=== PATIENT | male | born 1960 | race Caucasian/White ===

== ENCOUNTER 2018-06-03 12:09 | Inpatient (IN) ==
--- NOTE | 2018-06-03 13:10 | ED ---
HPI General Chief Complaint: Psychiatric Symptoms Stated Complaint: Psych Eval Time Seen by Provider: 06/03/18 12:57 Source: patient Mode of arrival: ambulatory Limitations: no limitations History of Present Illness HPI Narrative: 57-year-old male with a history of CVA with residual left sided weakness, depression, and suicidal ideations presents to emergency department as a Rausch act for evaluation. [facility] and a sent GILMER to pick him up and bring him to the emergency department today. Patient states he is compliant with his medications and has an outpatient psychiatrist, Tammy Mitchell. States he smokes 1 pack/day of cigarettes. Denies illicit drug use. He brings to my attention on his left third digit a growth of his nail that he says is been present for days to weeks. This appears to be months to years old. He has no other complaints today. MD complaint: Reports suicidal ideation Duration: constant History of same: Yes Relieving factors: none Exacerbating factors: none Associated psychiatric symptoms: Reports depression and suicidal ideation Associated symptoms: Reports denies other symptoms Treatments prior to arrival: Reports none If self harm: admits thoughts of self harm Related Data Home Medications Medication Instructions Recorded Confirmed aspirin 325 mg PO DAILY 06/03/18 06/03/18 atorvastatin 40 mg PO DAILY 06/03/18 06/03/18 cholecalciferol (vitamin D3) 1,000 unit PO DAILY 06/03/18 06/03/18 fluoxetine 20 mg PO DAILY 06/03/18 06/03/18 lisinopril 5 mg PO DAILY 06/03/18 06/03/18 metoprolol tartrate 12.5 mg PO BID 06/03/18 06/03/18 mirtazapine 7.5 mg PO HS 06/03/18 06/03/18 olanzapine 20 mg PO HS 06/03/18 06/03/18 tamsulosin 0.4 mg PO HS 06/03/18 06/03/18 Allergies Allergy/AdvReac Type Severity Reaction Status Date / Time No Known Allergies Allergy UNKNOWN Uncoded 06/03/18 16:51 Review of Systems ROS: all other systems reviewed are negative PMFSH History History Provided By: Patient Medical History Medical History Hypertension (Acute) Stroke (Acute) Social History Social History Substance History: No History of Abuse Second Hand Smoke Exposure: Yes Smoking Status: Current every day smoker Tobacco Type: Cigarettes How Often Do You Have a Drink Containing Alcohol: Never Recent Travel in [facility] within the Last 8 Weeks: No Recent Out of Country Travel within the Last 8 Weeks: No Exam Narrative Exam Narrative: GENERAL: Well-developed, well-nourished in no acute distress SKIN: Focused skin assessment warm/dry. HEAD: Atraumatic. Normocephalic. EYES: Pupils equal and round. No scleral icterus. No injection or drainage. ENT: No nasal bleeding or discharge. Mucous membranes pink and moist. NECK: Trachea midline. No JVD. CARDIOVASCULAR: Regular rate and rhythm. No murmur appreciated. RESPIRATORY: No accessory muscle use. Breath sounds equal bilaterally. MUSCULOSKELETAL: No obvious deformities. No clubbing. No cyanosis. No edema. left distal 3rd finger-yellow and Brown Horn shaped growth from the medial aspect of the nail-cutaneous keratotic horn NEUROLOGICAL: Awake and alert. No obvious cranial nerve deficits. Motor grossly within normal limits. Normal speech. PSYCHIATRIC: Appropriate mood and affect; insight and judgment normal. Course Initial Documented Vital Signs Temperature 98.3 F 06/03/18 12:47 Pulse Rate 76 06/03/18 12:47 Respiratory Rate 18 06/03/18 12:47 Blood Pressure 134/87 06/03/18 12:47 Last Documented Vital Signs Temperature 98.4 F 06/04/18 05:37 Pulse Rate 86 06/04/18 10:20 Respiratory Rate 18 06/04/18 05:37 Blood Pressure 105/68 06/04/18 10:20 Pulse Oximetry 98 06/04/18 05:37 Medical Decision Making MDM Narrative Medical decision making narrative: 57-year-old male presents to the emergency department for evaluation as a Rausch act for suicidal ideations. He states compliance with medications. He brings to my attention what appears to be a chronic cutaneous horn to his left third finger. He states he was told by his previous provider that he would require hand specialist or podiatry for treatment. He requests me to remove it however, is not appropriate in the emergency department setting and is not necessary for treatment. Labs ordered for evaluation. Labs were reviewed. Patient has hyponatremia at 129. Unsure of the chronicity of this lab value but will monitor. Patient is medically cleared to psych. Medical Screen Exam Complete: Yes Emergency Medical Condition: Yes Differential Diagnosis Differential Diagnosis: Suicidal ideations, medication noncompliance, depression , cutaneous keratotic horn Lab Data Result diagrams: 06/03/18 12:50 06/03/18 12:50 Lab Results 06/03/18 06/03/18 06/03/18 Range/Units 12:15 12:50 12:50 WBC 7.5 (4.0-11.0) th/mm3 RBC 4.16 L (4.50-5.90) mil/mm3 Hgb 13.7 (13.0-17.0) gm/dL Hct 38.5 L (39.0-51.0) % MCV 92.5 (80.0-100.0) fL MCH 32.8 (27.0-34.0) pg MCHC 35.5 (32.0-36.0) % RDW 13.9 (11.6-17.2) % Plt Count 223 (150-450) th/mm3 MPV 8.0 (7.0-11.0) fL Neut % (Auto) 75.9 H (16.0-70.0) % Lymph % (Auto) 17.5 (9.0-44.0) % [place] % (Auto) 5.6 (0.0-8.0) % Eos % (Auto) 0.6 (0.0-4.0) % Baso % (Auto) 0.4 (0.0-2.0) % Neut # (Auto) 5.7 (1.8-7.7) th/mm3 Lymph # (Auto) 1.3 (1.0-4.8) th/mm3 [place] # (Auto) 0.4 (0.0-0.9) th/mm3 Eos # (Auto) 0.0 (0.0-0.4) th/mm3 Baso # (Auto) 0.0 (0.0-0.2) th/mm3 WBC Differential . Differential Comment Auto diff final PT (9.8-11.6) sec INR Ratio APTT (23.4-31.7) sec Sodium 129 L (136-145) meq/L Potassium 4.1 (3.5-5.1) meq/L Chloride 97 L (98-107) meq/L Carbon Dioxide 24.6 (21.0-32.0) meq/L Anion Gap 7 (5-15) meq/L BUN 8 (7-18) mg/dL Creatinine 0.90 (0.60-1.30) mg/dL Estimated GFR 87 L (>89) mL/min Random Glucose 82 (74-106) mg/dL Calcium 8.7 (8.5-10.1) mg/dL Magnesium 1.9 (1.5-2.5) mg/dL Total Bilirubin 0.6 (0.2-1.0) mg/dL AST 16 (15-37) U/L ALT 20 (12-78) U/L Alkaline Phosphatase 115 (45-117) U/L Total Protein 7.1 (6.4-8.2) g/dL Albumin 3.5 (3.4-5.0) g/dL TSH 1.630 (0.358-3.740) uIU/mL Urine Opiates Screen Neg (Neg) Ur Barbiturates Screen Neg (Neg) Ur Amphetamines Screen Neg (Neg) U Benzodiazepines Scrn Neg (Neg) Urine Cocaine Screen Neg (Neg) U Cannabinoids Screen Neg (Neg) Serum Alcohol Less than 3 (0-5) mg/dL 06/03/18 Range/Units 14:06 WBC (4.0-11.0) th/mm3 RBC (4.50-5.90) mil/mm3 Hgb (13.0-17.0) gm/dL Hct (39.0-51.0) % MCV (80.0-100.0) fL MCH (27.0-34.0) pg MCHC (32.0-36.0) % RDW (11.6-17.2) % Plt Count (150-450) th/mm3 MPV (7.0-11.0) fL Neut % (Auto) (16.0-70.0) % Lymph % (Auto) (9.0-44.0) % [place] % (Auto) (0.0-8.0) % Eos % (Auto) (0.0-4.0) % Baso % (Auto) (0.0-2.0) % Neut # (Auto) (1.8-7.7) th/mm3 Lymph # (Auto) (1.0-4.8) th/mm3 [place] # (Auto) (0.0-0.9) th/mm3 Eos # (Auto) (0.0-0.4) th/mm3 Baso # (Auto) (0.0-0.2) th/mm3 WBC Differential Differential Comment PT 10.9 (9.8-11.6) sec INR 1.1 Ratio APTT 36.5 H (23.4-31.7) sec Sodium (136-145) meq/L Potassium (3.5-5.1) meq/L Chloride (98-107) meq/L Carbon Dioxide (21.0-32.0) meq/L Anion Gap (5-15) meq/L BUN (7-18) mg/dL Creatinine (0.60-1.30) mg/dL Estimated GFR (>89) mL/min Random Glucose (74-106) mg/dL Calcium (8.5-10.1) mg/dL Magnesium (1.5-2.5) mg/dL Total Bilirubin (0.2-1.0) mg/dL AST (15-37) U/L ALT (12-78) U/L Alkaline Phosphatase (45-117) U/L Total Protein (6.4-8.2) g/dL Albumin (3.4-5.0) g/dL TSH (0.358-3.740) uIU/mL Urine Opiates Screen (Neg) Ur Barbiturates Screen (Neg) Ur Amphetamines Screen (Neg) U Benzodiazepines Scrn (Neg) Urine Cocaine Screen (Neg) U Cannabinoids Screen (Neg) Serum Alcohol (0-5) mg/dL Discharge Plan Discharge Disposition Patient Disposition: 30 Still Patient Discharge Condition Condition: Stable Discharge Details Diagnosis: Suicidal ideation Physicians Team ED Provider: Kathryn Rausch ED Midlevel Provider: Ann-Marie Cárdenas Primary Care Provider: [facility] Attending Provider: Juarez Santizo Status ED Status: Left Department Discharge Information Discharge Date/Time: 06/03/18 23:23
[2018-06-03 13:25] LABS: Baso % (Auto) 0.4 % (0.0-2.0); Eos % (Auto) 0.6 % (0.0-4.0); Hematocrit 38.5 % (39.0-51.0); Hemoglobin 13.7 gm/dL (13.0-17.0); Lymph # (Auto) 1.3 th/mm3 (1.0-4.8); Lymph % (Auto) 17.5 % (9.0-44.0); Mean Corpuscular HGB Conc 35.5 % (32.0-36.0); Mean Corpuscular Hemoglobin 32.8 pg (27.0-34.0); Mean Corpuscular Volume 92.5 fL (80.0-100.0); Mono # (Auto) 0.4 th/mm3 (0.0-0.9); Mono % (Auto) 5.6 % (0.0-8.0); Neut # (Auto) 5.7 th/mm3 (1.8-7.7); Neut % (Auto) 75.9 % (16.0-70.0); Platelet Count 223 th/mm3 (150-450); Red Blood Count 4.16 mil/mm3 (4.50-5.90); Red Cell Distribution Width 13.9 % (11.6-17.2); White Blood Count 7.5 th/mm3 (4.0-11.0)
[2018-06-03 13:47] LABS: Alanine Aminotransferase 20 U/L (12-78); Albumin 3.5 g/dL (3.4-5.0); Anion Gap 7 meq/L (5-15); Aspartate Aminotransferase 16 U/L (15-37); Blood Urea Nitrogen 8 mg/dL (7-18); Calcium 8.7 mg/dL (8.5-10.1); Carbon Dioxide 24.6 meq/L (21.0-32.0); Chloride 97 meq/L (98-107); Glomerular Filtration Rate 87 mL/min (>89); Glucose,Random 82 mg/dL (74-106); Magnesium 1.9 mg/dL (1.5-2.5); Potassium 4.1 meq/L (3.5-5.1); Sodium 129 meq/L (136-145)
[2018-06-03 13:56] LABS: Alkaline Phosphatase 115 U/L (45-117); Total Protein 7.1 g/dL (6.4-8.2)
[2018-06-03 13:57] LABS: Amphetamine Screen,Urine Neg (Neg); Barbiturate Screen,Urine Neg (Neg); Cannabinoid Screen,Urine Neg (Neg); Cocaine Screen,Urine Neg (Neg)
[2018-06-03 14:08] LABS: Opiate Screen,Urine Neg (Neg)
[2018-06-03 14:52] LABS: Activated Partial Thrombo Time 36.5 sec (23.4-31.7); INR 1.1 Ratio; Prothrombin Time 10.9 sec (9.8-11.6)
[2018-06-03] MEDS ORDERED: Mirtazapine 15 MG Tablet PO ONE (23:00)
[2018-06-03] MEDS ORDERED: Acetaminophen 325 MG Tablet PO PRN (23:36)
[2018-06-03] MEDS ORDERED: LORazepam 1 MG Tablet PO PRN (23:36)
[2018-06-03] MEDS ORDERED: Aluminum/Magnesium/Simethacone Susp 30 ML UDC PO PRN (23:36)
--- NOTE | 2018-06-04 09:44 | P.HPPSY ---
Provisional Diagnosis Admission Date: June 03, 2018 22:17 Grant I.: 1. Adjustment disorder with depressed mood 2. History of bipolar disorder, rule out episode of bipolar depression Grant II.: Deferred Competence Certification of Person's Competence To Provide Express and Informed Consent I have personally examined Gray Aponte, a person being served at [facility] on, June 04, 2018 0944. Express and informed consent means consent voluntarily given in writing, by a competent person, after sufficient explanation and disclosure of the subject matter involved to enable the person to make a knowing and willful decision without any element of force, fraud, deceit, duress, or other form of constraint or coercion. This person is 18 years of age or older, is not now known to be incompetent to consent to treatment with a guardian advocate, and does not have a health care surrogate or proxy currently making medical treatment decisions. I have found this person to be one of the following: [X] Competent to provide express and informed consent, as defined above, for voluntary admission to this facility and is competent to provide express and informed consent for treatment. He/she has the consistent capacity to make well reasoned, willful, and knowing decisions concerning his or her medical or mental health treatment. The person fully and consistently understands the purpose of the admission for examination/placement and is fully capable of personally exercising all rights assured under [place] [] Incompetent to provide express and informed consent to voluntary admission, and this is incompetent to provide express and informed consent to treatment. The person must be transferred to involuntary status and a petition for a guardian advocate filed with the Circuit Court. [] Refusing to provide express and informed consent to voluntary admission but is competent to provide express and informed consent for treatment. The person must be discharged or transferred to involuntary status. Form shall be completed within 24 hours of a person's arrival at the receiving facility and filed in the clinical record of each person: 1. Admitted on a voluntary basis 2. Permitted to provide express and informed consent to his/her own treatment 3. Allowed to transfer from involuntary to voluntary status 4. Prior to permitting a person to consent to his or her own treatment after having been previously found incompetent to consent to treatment. History of Present Illness Capacity: Has capacity Chief Complaint: Depression, SI History of Present Illness: Mr. Aponte is a 57-year-old male with a reported history of bipolar disorder who presents under a Rausch act alleging suicidal ideation. Patient reportedly called the [facility], where he receives his psychiatric care, and told them he was suicidal, and [facility] Rausch [facility]. Reviewing the electronic medical record, I see no previous psychiatric contact within our system. Patient seen and examined with nurse. Chart reviewed. Case discussed with nursing staff. On my examination today, the patient says that he has come into the hospital because "I need people to talk to. I do not like being alone." Patient was apparently home with family but was still feeling somewhat isolated. He says "my kids were not talking to me." He tells me "I was kind of bored and lonely." He says that he has been having suicidal thoughts off and on for 3 weeks. He does not describe any current suicidal plan or intent and has no reported urge to hurt himself on the inpatient unit noting "I am stronger than that." Mood remains somewhat low and the patient says "I feel stuck." Sleep is poor. No hypomanic or manic symptoms. No psychotic material. Remainder of the psychiatric ROS is negative. No acute physical complaints. Past psychiatric history: The patient reports a history of bipolar disorder. He follows at the [facility] for psychiatric care. Most recent psychiatric admission was 4 or 5 years ago in [place]. He reports 5 previous suicide attempts by overdose. Patient does feel that current psychotropic medications are adequate and declines medication change/adjustment at this time. Family history: The patient reports bipolar disorder diagnosis in mother and older brother. Older brother completed suicide. Chemical dependency history: Patient has a history of heavier drinking but quit drinking about 6 years ago. He smokes a pack a day of cigarettes. Social history: The patient is to his second . He is previously . He has 2 daughters with his current and 2 daughters from his previous . He has a pet dog. He has high school educated. 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 He reports an honorable discharge. He denies any legal history. Denies any access to guns or firearms. He is a [employer]. Past medical history: Includes a history of CVA with left-sided weakness, hypertension, cutaneous horn on left hand. - Inpatient Certification I certify that the inpatient services were ordered in accordance with Medicare regulations governing the order. This includes certification that hospital inpatient services are reasonable and necessary and in the case of services not specified as inpatient-only under 42 CFR 419.22(n), that they are appropriately provided as inpatient services in accordance to with the 2-midnight benchmark under 43 CFR 412.3(e) I certify that inpatient psychiatric hospital services are medically necessary. Evaluation and treatment and/or diagnostic testing are expected to improve the patient's condition. The patient needs on a daily basis, active treatment furnished directly by or requiring the supervision of inpatient psychiatric facility personnel. Estimated Total Length of Stay (Days): 5 (3-5) Plans for Post Hospital Care: Home Review of Systems All other systems reviewed negative except as stated in HPI PMFSH - History History Provided By: Patient - Medical History Medical History: Medical History (Last Reviewed 06/03/18 @ 13:06 by CLAUDIO Boo) Hypertension Stroke - Tobacco History Second Hand Smoke Exposure: Yes Tobacco Use In Past 30 Days: Yes Smoking Status: Current every day smoker Tobacco Type: Cigarettes - Alcohol History How Often Do You Have a Drink Containing Alcohol: Never - Substance Use History Substance History: No History of Abuse - Substance Use Type Alcohol Status: Sustained Remission Route Used: By Mouth Comment: States that he has not drank in 3-4 years. Per pt, he went through rehab x1 for a 21 day program approx 7 yrs ago. - Travel History Recent Travel in the [place] Within the Last 8 Weeks: No Recent Travel Out of the Country Within the Last 8 Weeks: No - Immunization History Tetanus Immunization: >5 Years Quality Measures - Psychiatric History Psychological trauma history: No reported trauma history. - Patient Strengths Patient's strengths (minimum of 2): In a monitored setting. Verbally fluent. Medications and Allergies Active Medications: Active Medications Acetaminophen (Tylenol) 650 mg PO Q4H PRN PRN Reason: Pain 1-5 or Temp >101F Al Hydrox/Mg Hydrox/Simethicone (Mag-Al Plus Susp Liq) 30 ml PO Q6H PRN PRN Reason: DYSPEPSIA Al Hydroxide/Mg Hydroxide (Milk Of Magnesia Liq) 30 ml PO Q12H PRN PRN Reason: Mild Constipation Diphenhydramine HCl (Benadryl) 50 mg PO Q6H PRN PRN Reason: For mild anxiety and/or EPS Diphenhydramine HCl (Benadryl Inj) 50 mg IM Q6H PRN PRN Reason: For mild anxiety and/or EPS Diphenhydramine HCl (Benadryl Inj) 50 mg IM HS PRN PRN Reason: INSOMNIA Diphenhydramine HCl (Benadryl) 50 mg PO HS PRN PRN Reason: INSOMNIA Lorazepam (Ativan) 1 mg PO Q6H PRN PRN Reason: MODERATE TO SEVERE ANXIETY Lorazepam (Ativan Inj) 1 mg IM Q6H PRN PRN Reason: MODERATE TO SEVERE ANXIETY Nicotine (Habitrol 21 Mg Patch.24 Hr) 1 patch T-DERMAL DAILY AYO Last Admin: 06/04/18 08:56 Dose: 1 patch Allergies Allergy/AdvReac Type Severity Reaction Status Date / Time No Known Allergies Allergy UNKNOWN Uncoded 06/03/18 16:51 Home Medications Medication Instructions Recorded Confirmed Type aspirin 325 mg PO DAILY 06/03/18 06/03/18 History atorvastatin 40 mg PO DAILY 06/03/18 06/03/18 History cholecalciferol (vitamin D3) 1,000 unit PO DAILY 06/03/18 06/03/18 History fluoxetine 20 mg PO DAILY 06/03/18 06/03/18 History lisinopril 5 mg PO DAILY 06/03/18 06/03/18 History metoprolol tartrate 12.5 mg PO BID 06/03/18 06/03/18 History mirtazapine 7.5 mg PO HS 06/03/18 06/03/18 History olanzapine 20 mg PO HS 06/03/18 06/03/18 History tamsulosin 0.4 mg PO HS 06/03/18 06/03/18 History Results - Labs CBC & Chem 7: 06/03/18 12:50 06/03/18 12:50 Labs: Laboratory Tests 06/03/18 06/03/18 06/03/18 12:15 12:50 12:50 WBC 7.5 Hgb 13.7 Plt Count 223 PT INR APTT Sodium 129 L Potassium 4.1 Chloride 97 L Carbon Dioxide 24.6 BUN 8 Creatinine 0.90 Estimated GFR 87 L Random Glucose 82 AST 16 ALT 20 Alkaline Phosphatase 115 TSH 1.630 Urine Opiates Screen Neg Ur Barbiturates Screen Neg Ur Amphetamines Screen Neg U Benzodiazepines Scrn Neg Urine Cocaine Screen Neg U Cannabinoids Screen Neg Serum Alcohol Less than 3 06/03/18 14:06 WBC Hgb Plt Count PT 10.9 INR 1.1 APTT 36.5 H Sodium Potassium Chloride Carbon Dioxide BUN Creatinine Estimated GFR Random Glucose AST ALT Alkaline Phosphatase TSH Urine Opiates Screen Ur Barbiturates Screen Ur Amphetamines Screen U Benzodiazepines Scrn Urine Cocaine Screen U Cannabinoids Screen Serum Alcohol Labs reviewed. Exam Vital signs: Vital Signs 06/03/18 12:47 06/03/18 18:05 06/04/18 00:13 Temperature 98.3 F 98.2 F 97.9 F Pulse Rate 76 72 81 Respiratory Rate 18 18 18 Blood Pressure 134/87 147/79 H 112/57 L Pulse Oximetry 98 96 06/04/18 05:37 Temperature 98.4 F Pulse Rate 74 Respiratory Rate 18 Blood Pressure 113/62 Pulse Oximetry 98 Intake & Output 06/03/18 06/04/18 06/04/18 18:59 06:59 18:59 Intake Total 360 / 360 Balance 360 / 360 Weight 74.843 kg 72.9 kg Intake: Oral 360 / 360 Other: Weight On Admission 72.9 kg Narrative: Physical examination was completed by ED provider. On my examination today, the patient appears to be in no acute physical distress. He does have residual left-sided weakness but no other motor abnormalities are noted. Labs and vital signs reviewed. Mental Status Examination Appearance: Appropriate Consciousness: Alert Orientation: x4 Motor Activity: Abnormal gait (Some L sided weakness.) Speech: Unremarkable Language: Adequate Fund of Knowledge: Adequate Attention and Concentration: Adequate Memory: Unremarkable (Grossly intact on clinical exam) Mood: Other (Somewhat depressed) Affect: Appropriate Thought Process & Associations: Intact Thought Content: Appropriate Hallucination Type: None Delusion Type: None Suicidal Ideation: Yes Suicidal Plan: No Suicidal Intention: No (No reported urge to hurt self on an inpatient unit.) Homicidal Ideation: No Homicidal Plan: No Homicidal Intention: No Insight: Adequate Judgment: Adequate Assessment and Plan - Assessment (1) Adjustment disorder with depressed mood Code(s): F43.21 - Adjustment disorder with depressed mood Status: Acute - Plan Plan: 57-year-old male with psychiatric history as detailed above who presents under Rausch act. On my examination today, the patient describes some low mood and vague suicidal ideation reactive to psychosocial stressors. An adjustment disorder is suspected, although an exacerbation of his underlying bipolar disorder will need to be ruled out. Patient says he has come to the inpatient unit primarily to have someone to talk to. I will plan to admit the patient to the inpatient psychiatric unit for safety, observation and stabilization. Admit inpatient. Voluntary status. I will continue patient's Zyprexa 20 mg at bedtime, Prozac 20 mg daily and Remeron 7.5 mg at bedtime as patient feels that these are adequate for now. To consider further adjustment of psychotropic medications. Atarax as needed for anxiety. Melatonin as needed for sleep. Continue patient's antihypertensives, statin and tamsulosin. Repeat BMP in the morning to follow-up hyponatremia. Consult physical therapy for evaluation. Vitals every shift. Counselor to see. Collateral information. Disposition planning. Estimated length of stay: 3-5 days. Justification for Continued Inpatient Stay: See above Discharge Planning: Pending further observation Request Healthcare Surrogate/Guardian Advocate?: No
[2018-06-04] MEDS: Metoprolol Tartrate 25 MG Tablet PO SCH ×2 (10:31→20:58)
[2018-06-04] MEDS: Lisinopril 5 MG Tablet PO SCH (10:31)
[2018-06-04] MEDS: FLUoxetine 20 MG Capsule PO SCH (10:32)
[2018-06-04] MEDS: Aspirin 325 MG Tablet PO SCH (10:32)
[2018-06-04] MEDS: Mirtazapine 15 MG Tablet PO SCH (20:58)
[2018-06-04] MEDS: OLANZapine 10 MG Tablet PO SCH (21:00)
[2018-06-05 07:22] LABS: Calcium 9.1 mg/dL (8.5-10.1); Carbon Dioxide 29.7 meq/L (21.0-32.0); Chol/HDL Ratio 3.52 Ratio; HDL Cholesterol 41.4 mg/dL (40.0-60.0); Potassium 3.7 meq/L (3.5-5.1)
[2018-06-05] MEDS: Lisinopril 5 MG Tablet PO SCH (08:51)
[2018-06-05] MEDS: FLUoxetine 20 MG Capsule PO SCH (08:52)
[2018-06-05] MEDS: Metoprolol Tartrate 25 MG Tablet PO SCH ×2 (08:52→20:41)
[2018-06-05] MEDS: Aspirin 325 MG Tablet PO SCH (08:52)
--- NOTE | 2018-06-05 10:23 | P.PNPSY ---
Subjective Chief Complaint: Depression, SI Remarks: Patient seen and examined with nurse. Chart reviewed. Case discussed with nursing staff. No behavioral issues noted overnight. Patient did receive Atarax for anxiety this morning. On my examination, patient reports that his meds are working well and that he has been socializing on the unit. He does feel he needs to stay longer on the inpatient unit, although the therapeutic goal of this is unclear. He slept well overnight. He denies SI. Denies side effects from medication. No physical complaints, except patient does complain of his cutaneous horn getting stuck in the covers. He wonders if this could be excised here. This growth does not appear inflamed or infected and is chronic in nature; I have encouraged him to speak with his PCP at the [facility] on discharge about this lesion. No other physical complaints. Vital Signs Temp Pulse Resp BP Pulse Ox 06/05/18 05:48 69 18 117/66 95 06/04/18 17:34 98.1 F 82 18 127/70 98 Intake and Output 06/04/18 06/05/18 06/05/18 22:59 06:59 14:59 Intake Total 360 / 360 Balance 360 / 360 Intake: Oral 360 / 360 Laboratory Results - last 24 hr 06/05/18 05:40 Sodium 142 D Potassium 3.7 Chloride 107 D Carbon Dioxide 29.7 Anion Gap 5 BUN 16 Creatinine 1.15 Estimated GFR 65 L Random Glucose 93 Calcium 9.1 Triglycerides 71 Cholesterol 146 LDL Cholesterol, Calc 90 HDL Cholesterol 41.4 Cholesterol/HDL Ratio 3.52 Labs reviewed. GFR somewhat decreased today. Review of Systems All other systems reviewed negative except as stated in HPI Mental Status Examination Appearance: Appropriate Consciousness: Alert Orientation: x4 Motor Activity: Abnormal gait (Some L sided weakness.), Other (Left-sided weakness status post CVA, chronic) Speech: Unremarkable Language: Adequate Fund of Knowledge: Adequate Attention and Concentration: Adequate Memory: Unremarkable (Grossly intact on clinical exam) Mood: Other (Mood is improving) Affect: Appropriate Thought Process & Associations: Intact, Logical, Linear Thought Content: Appropriate Hallucination Type: None Delusion Type: None Suicidal Ideation: No Suicidal Plan: No Suicidal Intention: No Homicidal Ideation: No Homicidal Plan: No Homicidal Intention: No Insight: Adequate Judgment: Adequate Assessment and Plan - Assessment (1) Adjustment disorder with depressed mood Code(s): F43.21 - Adjustment disorder with depressed mood Status: Acute - Plan Plan: Continue current psychotropic medications as ordered. Encourage fluids and recheck BMP in the morning. Continue to monitor on the inpatient unit. Physical therapy input noted and appreciated. Continue other care as ordered. Justification for Continued Inpatient Stay: Monitoring for impairment in safety, none noted. Discharge Planning: Pending outcome of observation Request Healthcare Surrogate/Guardian Advocate?: No
[2018-06-05 13:05] LABS: Hemoglobin A1c 5.4 % (4.3-6.0)
[2018-06-05] MEDS: OLANZapine 10 MG Tablet PO SCH (20:41)
[2018-06-05] MEDS: Melatonin 5 MG Tablet PO PRN (20:41)
[2018-06-05] MEDS: Mirtazapine 15 MG Tablet PO SCH (20:41)
[2018-06-06 08:27] LABS: Carbon Dioxide 23.5 meq/L (21.0-32.0); Potassium 4.4 meq/L (3.5-5.1)
[2018-06-06] MEDS: Metoprolol Tartrate 25 MG Tablet PO SCH ×2 (08:55→21:11)
[2018-06-06] MEDS: FLUoxetine 20 MG Capsule PO SCH (08:55)
[2018-06-06] MEDS: Lisinopril 5 MG Tablet PO SCH (08:55)
[2018-06-06] MEDS: Aspirin 325 MG Tablet PO SCH (08:55)
--- NOTE | 2018-06-06 11:14 | P.PNPSY ---
Subjective Chief Complaint: Depression, SI Remarks: Patient seen and examined with nurse. Chart reviewed. Case discussed with nursing staff who notes patient is visible on the unit and no behavioral problem. On my examination today, the patient is requesting discharge next . He denies any SI/HI/AVH. Feels that he is doing well with meds and having no medication side effects. When I explain that it may be difficult to justify hospitalization until next given paucity of current psychiatric symptoms, patient says I can go ahead and discharge him sooner. Some dependent personality traits noted. No acute physical complaints. Patient requests I reach out to his and provides number, . This number rings to a voicemail, not set up. I also try a slightly different number for contained in nursing notes from the ED ([phone]), but this number rings with no VM. Vital Signs Temp Pulse Resp BP Pulse Ox 06/06/18 06:00 98.7 F 75 16 127/64 95 06/05/18 18:29 71 125/67 06/05/18 17:24 98.3 F 74 18 81/46 L 97 Intake and Output 06/05/18 06/06/18 06/06/18 22:59 06:59 14:59 Other: Weight 73.9 kg Laboratory Results - last 24 hr 06/05/18 06/06/18 05:40 07:36 Sodium 141 Potassium 4.4 Chloride 111 H Carbon Dioxide 23.5 Anion Gap 7 BUN 14 Creatinine 1.12 Estimated GFR 67 L Random Glucose 96 Hemoglobin A1c 5.4 Calcium 9.0 Labs reviewed. GFR decreased but stable. Review of Systems All other systems reviewed negative except as stated in HPI Mental Status Examination Appearance: Appropriate Consciousness: Alert Orientation: x4 Motor Activity: Abnormal gait (Some L sided weakness.), Other (No new motor abnormalities noted) Speech: Unremarkable Language: Adequate Fund of Knowledge: Adequate Attention and Concentration: Adequate Memory: Unremarkable (Grossly intact on clinical exam) Mood: Appropriate Affect: Appropriate Thought Process & Associations: Intact, Logical, Linear Thought Content: Appropriate Hallucination Type: None Delusion Type: None Suicidal Ideation: No Suicidal Plan: No Suicidal Intention: No Homicidal Ideation: No Homicidal Plan: No Homicidal Intention: No Insight: Adequate Judgment: Adequate Assessment and Plan - Assessment (1) Adjustment disorder with depressed mood Code(s): F43.21 - Adjustment disorder with depressed mood Status: Acute - Plan Plan: Continue current psychotropic medications as ordered. I have spoken with counselor who will [facility] Continue to monitor on inpatient unit. Continue other meds and care as ordered. Justification for Continued Inpatient Stay: Discharge planning. Discharge Planning: Possible discharge tomorrow, Sunday. Request Healthcare Surrogate/Guardian Advocate?: No
[2018-06-06] MEDS: Melatonin 5 MG Tablet PO PRN (21:12)
[2018-06-06] MEDS: Mirtazapine 15 MG Tablet PO SCH (21:12)
[2018-06-06] MEDS: OLANZapine 10 MG Tablet PO SCH (21:12)
[2018-06-07 05:20] VITALS: BP 129/65; PULSE 69; RESP 18; TEMP 98.1; O2SAT 98
[2018-06-07] MEDS: FLUoxetine 20 MG Capsule PO SCH (08:53)
[2018-06-07] MEDS: Metoprolol Tartrate 25 MG Tablet PO SCH (08:53)
[2018-06-07] MEDS: Lisinopril 5 MG Tablet PO SCH (08:53)
[2018-06-07] MEDS: Aspirin 325 MG Tablet PO SCH (09:00)
--- NOTE | 2018-06-07 11:17 | P.DSPSY ---
Psychiatry Discharge Summary Inpatient Psychiatric care?: Yes Advance Directives: Unknown Reason for Unknown:: Due to Patient Condition Mental Health Advance Directive: No Health Care Proxy: No - Admission Admission Date: June 03, 2018 22:17 - Admission Diagnosis (1) Adjustment disorder with depressed mood Code(s): F43.21 - Adjustment disorder with depressed mood Brief History: Mr. Aponte is a 57-year-old male with a reported history of bipolar disorder who presents under a Rausch act alleging suicidal ideation. Patient reportedly called the [place], where he receives his psychiatric care, and told them he was suicidal, and the [place] sent [facility] to [facility] Act the patient. Reviewing the electronic medical record, I see no previous psychiatric contact within our system. Patient seen and examined with nurse. Chart reviewed. Case discussed with nursing staff. On my examination today, the patient says that he has come into the hospital because "I need people to talk to. I do not like being alone." Patient was apparently home with family but was still feeling somewhat isolated. He says "my kids were not talking to me." He tells me "I was kind of bored and lonely." He says that he has been having suicidal thoughts off and on for 3 weeks. He does not describe any current suicidal plan or intent and has no reported urge to hurt himself on the inpatient unit noting "I am stronger than that." Mood remains somewhat low and the patient says "I feel stuck." Sleep is poor. No hypomanic or manic symptoms. No psychotic material. Remainder of the psychiatric ROS is negative. No acute physical complaints. Tobacco Use In Past 30 Days: Yes How Often Do You Have a Drink Containing Alcohol: Never Hospital Course: Patient was admitted to a locked, inpatient psychiatric unit. Appropriate precautions were in place throughout patient's hospital stay. Patient was seen and examined on the inpatient unit by psychiatry and also visited by counselor. Home psychotropic medications were continued. Patient tolerated medications well without side effects. There was no evidence of any suicidality or homicidality on the inpatient unit. There was no evidence of significant self- care deficit. Collateral information was obtained by the counselor from the patient's . On the day of discharge: Patient seen and examined with nurse. Chart reviewed. Case discussed with nursing staff. No behavioral issues noted overnight. Case discussed in treatment team. [facility] On my examination today, the patient feels ready for discharge from the inpatient psychiatric unit today. He notes "I did as much as I could hear." Mood is reportedly good and the patient says that he is excited for discharge. He denies any suicidal or homicidal ideation, intent or plan. I can elicit no depressive or hypomanic/ manic symptoms. He denies any audiovisual hallucinations. I can elicit no delusional beliefs. Some dependent personality traits are noted. He denies any side effects from medications. He reports that he has an adequate supply of medications at home and so no prescriptions have been provided to him on discharge. He has no acute physical complaints. Suicide and violence risk assessment on day of discharge both suggest lower imminent risk from mental illness, and the patient's level of function is adequate for outpatient care. Patient will be discharged home today with psychiatric follow-up through the [facility]. Patient is also to follow-up with primary care. I have counseled the patient regarding warning signs for need to return to the psychiatric emergency room as part of a general safety plan. - Discharge Discharge Date: 06/07/18 - Discharge Diagnosis (1) Adjustment disorder with depressed mood Diagnosis: Principal (Resolved) Code(s): F43.21 - Adjustment disorder with depressed mood Status: Acute Discharge Disposition: Home - Discharge Instructions Discharge Diet: Regular Diet Activities You Can Perform: Weight Bearing As Tolerat - Discharge Time <= 30 minutes Mental Status Examination Appearance: Appropriate Consciousness: Alert Orientation: x4 Motor Activity: Abnormal gait (Some L sided weakness, chronic and stable.), Other (No new motoric abnormalities) Speech: Unremarkable Language: Adequate Fund of Knowledge: Adequate Attention and Concentration: Adequate Memory: Unremarkable (Grossly intact on clinical exam) Mood: Appropriate, Good Affect: Appropriate, Euthymic Thought Process & Associations: Intact, Logical, Goal directed, Linear Thought Content: Appropriate Hallucination Type: None Delusion Type: None Suicidal Ideation: No Suicidal Plan: No Suicidal Intention: No Homicidal Ideation: No Homicidal Plan: No Homicidal Intention: No Insight: Adequate Judgment: Adequate Discharge/Advance Care Plan - Results Vital Signs: Last Vital Signs Temp 98.1 F 06/07/18 05:19 Pulse 69 06/07/18 05:19 Resp 18 06/07/18 05:19 BP 129/65 06/07/18 05:19 Pulse Ox 98 06/07/18 05:19 Lab Results: Laboratory Results Hemoglobin A1c 5.4 % (4.3-6.0) 06/05/18 05:40 Triglycerides 71 mg/dL (42-150) 06/05/18 05:40 Cholesterol 146 mg/dL (120-200) 06/05/18 05:40 LDL Cholesterol, Calc 90 mg/dL (0-99) 06/05/18 05:40 HDL Cholesterol 41.4 mg/dL (40.0-60.0) 06/05/18 05:40 TSH 1.630 uIU/mL (0.358-3.740) 06/03/18 12:50 Summary of Procedures: None done Pending Results: None - Medications Number of antipsychotic medications at discharge: 1 - Discharge Care Plan Goals to Promote Your Health: * To prevent worsening of your condition and complications * To maintain your health at the optimal level Directions to Meet Your Goals: Take your medications as prescribed Follow your dietary instruction Follow activity as directed Keep your appointments as scheduled Take your immunizations and boosters as scheduled If your symptoms worsen call your PCP, if no PCP go to Urgent Care Center or Emergency Room For 29/01 questions related to your inpatient stay or results of tests pending at discharge, please contact Dr. Juarez Santizo MD at Smoking is Dangerous to Your Health. Avoid second hand smoking
--- NOTE | 2018-06-07 16:57 | P.TTN ---
- Patient Problems Problems: 1. Discharge planning 2. Medication compliance 3. Knowledge deficit 4. Lack of coping skills - Progress Toward Goals Provider Present: Dr. Lul Santizo Provider Input: 06/07/2018 Patient is stablized. Will contact [place] for services. is asking for [facility] like they previously had in [place] and [place]. Patient admitted last night and will need to be assessed. Admitted for suicidal thoughts. Nurse Input: Nurse was unavailable Psychiatric Counselors Present: Other (No information at the present as a new patient) Psychiatric Therapist Input: 06/07/2018 Minimal participation on the unit. Is calm and appropriate. Patient's believes he does better in a structured environment where everything is on time. Family unable to provide this. Suggested homehealth care but stated they have three dogs and it is not possible. Group Spec/RT/OT/RIGGINS Input: 06/07/2018 No participation. - Documentation Teaching Recipient: Patient
== END 2018-06-07 14:50 | disposition home or self-care (01) ==
LOC: NEPJ 12:09 → NEDA 22:17 → H260 23:27
PROVIDERS: ADMIT Psychiatry & Neurology Psychiatry; ATTEND Psychiatry & Neurology Psychiatry